=== PATIENT | female | born 2000 | race Caucasian/White ===

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

== ENCOUNTER 2019-10-13 03:57 | Emergency (ER) | payer OTHER ==
[2019-10-13] MEDS ORDERED: Ibuprofen TAB* 400 MG PO ONE (04:15)
[2019-10-13] MEDS ORDERED: Dexamethasone TAB* 4 MG PO ONE (04:16)
--- NOTE | 2019-10-13 04:20 | ED ---
Complex/Multi-Sys Presentation - HPI Summary HPI Summary: Patient is a 19 y/o F presenting to [facility] with complaints of sore throat, chest pain, back pain, and left-sided abdominal pain. Sx onset around 0200 10/12/19 and progressively worsened since onset. She denies cough but endorses some difficulty and pain with swallowing. Patient also notes that she had a rash on her arms earlier that has since resolved. She states that she took ibuprofen 2200 10/12/19. On triage, pain is rated 7/10. Home medications and allergies are reviewed. - History Of Current Complaint Hx Obtained From: Patient Onset/Duration: Lasting Days, Still Present, Worse Since Timing: Constant, Days Severity Currently: Severe Location: Pain At: - chest, back, left abdomen, throat Associated Signs And Symptoms: Positive: Chest Pain, Abdominal Pain, Back Pain, Other - positive - sore throat, pain and difficulty with swallowing; since resolved rash on arms. Negative: Cough - Allergies/Home Medications Allergies/Adverse Reactions: Allergies Allergy/AdvReac Type Severity Reaction Status Date / Time Sulfa (Sulfonamide Allergy Hives Verified 10/13/19 04:05 Antibiotics) PMH/Surg Hx/FS Hx/Imm Hx Endocrine/Hematology History: Denies: Hx Diabetes Cardiovascular History: Denies: Hx Hypertension Infectious Disease History: No Infectious Disease History: Denies: Traveled Outside the [place] in Last 30 Days - Family History Known Family History: Negative: Hypertension, Diabetes - Social History Alcohol Use: Occasionally Hx Substance Use: No Substance Use Type: Reports: None Hx Tobacco Use: No Smoking Status (MU): Never Smoked Tobacco Review of Systems ENT: Other - positive - pain and difficulty with swallowing Positive: Sore Throat Positive: Chest Pain Negative: Cough Positive: Abdominal Pain Musculoskeletal: Other - positive - back pain Positive: Rash All Other Systems Reviewed And Are Negative: Yes Physical Exam - Summary Physical Exam Summary: Appearance: Well-appearing, Well-nourished, lying in bed comfortably Skin: Warm, dry, no obvious rash Eyes: sclera anicteric, no conjunctival pallor ENT: There is redness of the tonsils bilaterally with a small amount of exudates. mucous membranes moist Neck: Supple, nontender Respiratory: Clear to auscultation, no signs of respiratory distress Cardiovascular: Normal S1, S2. No murmurs. Normal distal pulses in tibial and radial bilaterally. Abdomen: Soft, nontender, normal active bowel sounds present Musculoskeletal: Normal, Strength/ROM Intact Neurological: A&Ox3, awake and alert, mentation is normal, speech is fluent and appropriate Psychiatric: affect is normal, does not appear anxious or depressed Triage Information Reviewed: Yes Vital Signs On Initial Exam: Initial Vitals Temp Pulse Resp BP Pulse Ox 102.3 F 126 16 104/80 98 10/13/19 04:00 10/13/19 04:00 10/13/19 04:00 10/13/19 04:00 10/13/19 04:00 Vital Signs Reviewed: Yes Procedures - Sedation Patient Received Moderate/Deep Sedation with Procedure: No Diagnostics - Vital Signs Vital Signs Temp Pulse Resp BP Pulse Ox 10/13/19 04:00 102.3 F 126 16 104/80 98 - Laboratory Lab Statement: Any lab studies that have been ordered have been reviewed, and results considered in the medical decision making process. Complex Multi-Symp Course/Dx Course Of Treatment: Patient is a 19 y/o F presenting to [facility] with complaints of sore throat, chest pain, back pain, and left-sided abdominal pain. Sx onset around 0200 10/12/19 and progressively worsened since onset. She denies cough but endorses some difficulty and pain with swallowing. Patient also notes that she had a rash on her arms earlier that has since resolved. She states that she took ibuprofen 2200 10/12/19. There is redness of the tonsils bilaterally with a small amount of exudates noted on physical exam. During ED course, patient received 400 mg Motrin, Decadron 8 mg PO, and Multi-Ingredient Mouthwash Gargle. Rapid Strep A was negative. Patient was discharged to home with Decadron and Multi-Ingredient Mouthwash Gargle prescription. - Diagnoses Provider Diagnoses: Pharyngitis Discharge ED - Sign-Out/Discharge Documenting (check all that apply): Patient Departure - DISCHARGE - Discharge Plan Condition: Good Disposition: HOME Prescriptions: Dexamethasone TAB* [Decadron TAB*] 4 mg PO DAILY #4 tab Magic Mouth Was-ESSENCE/MAAL/LIDO* 5 ml SWISH SWAL QID #60 ml Patient Education Materials: Pharyngitis (ED) Referrals: [facility] [Outside] - Billing Disposition and Condition Condition: GOOD Disposition: Home - Attestation Statements Document Initiated by Scribe: Yes Documenting Scribe: LAURA SOFIA Provider For Whom William is Documenting (Include Credential): CLIFFORD MATA MD Scribe Attestation: I, LAURA SOFIA, scribed for CLIFFORD MATA MD on 10/13/19 at 1912. Scribe Documentation Reviewed: Yes Provider Attestation: The documentation as recorded by the LAURA casanova accurately reflects the service I personally performed and the decisions made by me, CLIFFORD MATA MD Status of Scribe Document: Viewed
[2019-10-13 04:38] LABS: Rapid Strep Molecular Negative (Negative)
[2019-10-13] MEDS ORDERED: Magic Mouth Was-BEN/MAAL/LIDO SWISH SWAL ONE (05:00)
[2019-10-13 05:23] VITALS: BP 102/59
== END 2019-10-13 05:22 | disposition home or self-care (01) ==
LOC: EDBD → ED 03:57
DX: J02.9 Acute pharyngitis, unspecified (principal); Z88.2 Allergy status to sulfonamides
CPT/HCPCS: 87651; 99282; A9270-GY; J8540